=== PATIENT | female | born 1995 | race Caucasian/White ===

== ENCOUNTER 2018-12-15 00:44 | Emergency (ER) | payer BC, OTHER ==
[~2018-12-15] VITALS: Ht 165.1 cm; Wt 63.5 kg
[2018-12-15 01:10] VITALS: BP 92/64
--- NOTE | 2018-12-15 01:10 | Emergency Room Report ---
History of Present Illness General Chief Complaint: Alcohol Intoxication Source: EMS Present Illness HPI 23-year-old female unknown past Delroy history none surgical history presents with acute alcohol intoxication, patient was partying at a club, patient was found staggering outside, patient was brought in by [facility], patient is unable to give a history she is currently sleeping Allergies: Coded Allergies: UNABLE TO ASSESS (Unverified , 12/15/18) Patient History Limited by: medical condition - Limited 2/2 intoxication Past Medical History: see triage record Last Menstrual Period: UNK Reviewed Nursing Documentation: PMH: Agreed; PSxH: Agreed Nursing Documentation-PMH Past Medical History Deferred: Patient Unconscious Past Medical History: Deferred Review of Systems All Other Systems: limited - Limited 2/2 intoxication Physical Exam Vital Signs Date Time Temp Pulse Resp B/P (MAP) Pulse Ox O2 Delivery O2 Flow Rate FiO2 12/15/18 00:46 98.4 52 12 92/64 (73) 99 Room Air Sp02 EP Interpretation: reviewed, normal General Appearance: no apparent distress, non-toxic Head: normocephalic, atraumatic Eyes: bilateral eye PERRL, bilateral eye EOMI ENT: uvula midline, moist mucus membranes Neck: supple, thyroid normal, supple/symm/no masses Respiratory: lungs clear, no respiratory distress, no retraction, no accessory muscle use Cardiovascular #1: normal peripheral pulses, regular rate, rhythm, no edema, no gallop, no murmur Gastrointestinal: non tender, soft, no guarding, no rebound Musculoskeletal: normal inspection Neurologic: responsive Skin: no rash, warm/dry Medical Decision Making Diagnostic Impression: Primary Impression: Acute alcoholic intoxication Qualified Codes: F10.920 - Alcohol use, unspecified with intoxication, uncomplicated ER Course 23-year-old female presents with acute alcohol intoxication Will rehydrate patient will observe patient until she jeremiah Reevaluation 3:56 AM, patient states that she was drinking a lot she went to speak easy she is back to baseline and wants to go home she will uber back home Dispo home w/ return precautions Last Vital Signs Date Time Temp Pulse Resp B/P (MAP) Pulse Ox O2 Delivery O2 Flow Rate FiO2 12/15/18 00:46 98.4 52 12 92/64 (73) 99 Room Air Disposition: HOME, SELF-CARE Condition: Stable Scripts Unable to Obtain Active Prescriptions or Reported Meds Referrals: [facility] Patient Instructions: Alcohol Intoxication, [id number] Additional Instructions: The patient was provided with discharge instructions, notified to follow-up with a primary care doctor and or specialist in the next 24-48 hours, and to return to the ED if they have worsening of their symptoms. Please note that this report is being documented using DRAGON technology. This can lead to erroneous entry secondary to incorrect interpretation by the dictating instrument. Angelito Murry MD Dec 15, 2018 01:10
--- NOTE | 2018-12-15 01:10 | NUR ---
ED Nurse Note: Patient was BIBA from night club due to ETOH. Patient presented with strong smell of alcohol, non responsive. AAO x0, VSS at this time.
--- NOTE | 2018-12-15 01:18 | NUR ---
ED Nurse Note: Patient vomited,become responsive for Name.
[2018-12-15 04:06] VITALS: BP 92/64
--- NOTE | 2018-12-15 04:06 | NUR ---
ER DISCHARGE NOTE: Patient is cleared to be discharged per ERMD, pt is aox4, on room air, with stable vital signs. pt was given dc and prescription instructions, pt was able to verbalize understanding, pt id band and iv site removed without complications. pt is able to ambulate with steady gait. pt took all belongings.
== END 2018-12-15 04:06 | disposition home or self-care (01) ==
LOC: EDBD 00:44 → EMR 00:55
DX: F10.929 Alcohol use, unspecified with intoxication, unspecified (principal)
CPT/HCPCS: 96360; 99284